=== PATIENT | female | born 1940 | race Caucasian/White ===

== ENCOUNTER 2024-04-16 23:46 | Inpatient (IN) | payer MEDICARE, SELFPAY ==
--- NOTE | ~2024-04-16 | CT_ITS ---
EXAMINATION: CTA chest PE abdomen pel DATE: 04/18/2024 13:12 INDICATION: Nausea and vomiting. Shortness of breath. TECHNIQUE: Computed tomography angiography (CTA) of the chest was performed with 100 mL Omnipaque-350 intravenous contrast timed to evaluate the pulmonary arteries. Coronal maximum intensity projection 3D-reconstructions were created by the technologist. Computed tomography (CT) of the abdomen and pelv is was performed with intravenous contrast. Automated exposure control and iterative reconstruction t echnique were employed. The dose-length product was 827.67 mGy-cm. COMPARISON: None. FINDINGS: CTA chest: There is mild scarring at the lung apices. There is mild emphysema. There are patchy airsp augusto and groundglass opacities in all lobes with a lower lung predominance, consistent with pneumonia. There are small pleural effusions. The heart size is normal. There is a small pericardial effusion. There is no pulmonary embolus. There is wall thickening throughout the esophagus. There is mild thora cic spondylosis. There is mild chronic height loss of multiple thoracic vertebral bodies. CT abdomen and pelvis: The liver is normal. There are gallstones in the gallbladder, which is normal in size. The spleen, pancreas, and adrenal glands are normal. The stomach is distended. There is wall thickening of the duodenum with surrounding fat stranding. There is a perforated duodenal ulcer with fluid and gas in the right abdomen. There is wall thickening in the adjacent ascending colon, consis tent with secondary colitis. There is severe atrophy of right kidney. There is severe right hydroneph rosis. There is a right internal ureteral stent in expected position. There is cortical thinning of l eft kidney. There are cysts in left kidney measuring up to 8 mm. The bladder is decompressed by Barrett catheter. There is a 5.1 cm cyst in right adnexa. There is diverticulosis of the colon without evide nce of diverticulitis. There is a 4.5 cm mass of the proximal ascending colon. There are no pathologi dylon enlarged lymph nodes. There is internal fixation of proximal right femur. There is moderate lum bar spondylosis. IMPRESSION: 1. Perforated duodenal ulcer. 2. Diffuse lung disease, consistent with pneumonia. 3. Small pleural effusions. 4. Mild emphysema. 5. Diffuse wall thickening of the esophagus, likely esophagitis. 6. Severe right kidney atrophy. Severe right hydronephrosis with internal ureteral stent in expected position. 7. Colitis of ascending colon adjacent to the perforated ulcer. The mass of the proximal ascending co kahtie may be primary malignancy or colitis. 8. 5.1 cm cyst of the right ovary, likely benign. Pelvis ultrasound is recommended in one year. 9. No pulmonary embolus. Reviewed, dictated and finalized at location A. IMPRESSION: 1. Perforated duodenal ulcer. 2. Diffuse lung disease, consistent with pneumonia. 3. Small pleural effusions. 4. Mild emphysema. 5. Diffuse wall thickening of the esophagus, likely esophagitis. 6. Severe right kidney atrophy. Severe right hydronephrosis with internal urete ral stent in expected position. 7. Colitis of ascending colon adjacent to the perforated ulcer. The mass of the proximal ascending colon may be primary malignancy or colitis. 8. 5.1 cm cyst of the right ovary, likely benign. Pelvis ultrasound is recommen ded in one year. 9. No pulmonary embolus.
--- NOTE | ~2024-04-16 | XR_ITS ---
EXAMINATION: XR chest 1V portable DATE: 04/18/2024 09:26 INDICATION: Shortness of breath. TECHNIQUE: A single frontal view of the chest was obtained. COMPARISON: None. FINDINGS: There is mild atelectasis at the lung bases. There is mild scarring at the lung apices. No pleural effusion or pneumothorax. The heart size is normal. IMPRESSION: 1. Mild atelectasis at the lung bases and mild scarring at the lung apices. Reviewed, dictated and finalized at location A.
[2024-04-16 22:21] VITALS: BMI 22.1
--- NOTE | 2024-04-16 22:31 | ADMGEN ---
This patient, Mayela Ambrosio, was admitted to 2 Medical Room 258-01. Patient/family oriented to hospital policies and general routines including ID bracelet, bed and alarms, visiting hours, pain management, procedures, bathroom and other care routines, personal items, smoking policy, room service/diet, and visiting hours. Information on how to activate the Rapid Response Team has been discussed. Patient/Family are encouraged to report perceived risks to care and to ask questions if they do not understand what they are told or what they should do.
[2024-04-16 22:38] VITALS: BP 139/75; PULSE 107; RESP 20; TEMP 36.6; O2SAT 98
--- NOTE | 2024-04-16 23:58 | PM.IMHP ---
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 Most of the history has been obtained from medical records patient is unable to give any detail states that she is here because of her son and denies any pain at the present moment. EXAMINATION: XR chest 1V portable DATE: 04/18/2024 09:26 INDICATION: Shortness of breath. TECHNIQUE: A single frontal view of the chest was obtained. COMPARISON: None. FINDINGS: There is mild atelectasis at the lung bases. There is mild scarring at the lung apices. No pleural effusion or pneumothorax. The heart size is normal. IMPRESSION: 1. Mild atelectasis at the lung bases and mild scarring at the lung apices. EXAMINATION: CTA chest PE abdomen pel DATE: 04/18/2024 13:12 INDICATION: Nausea and vomiting. Shortness of breath. TECHNIQUE: Computed tomography angiography (CTA) of the chest was performed with 100 mL Omnipaque-350 intravenous contrast timed to evaluate the pulmonary arteries. Coronal maximum intensity projection 3D-reconstructions were created by the technologist. Computed tomography (CT) of the abdomen and pelvis was performed with intravenous contrast. Automated exposure control and iterative reconstruction technique were employed. The dose-length product was 827.67 mGy-cm. COMPARISON: None. FINDINGS: CTA chest: There is mild scarring at the lung apices. There is mild emphysema. There are patchy airspace and groundglass opacities in all lobes with a lower lung predominance, consistent with pneumonia. There are small pleural effusions. The heart size is normal. There is a small pericardial effusion. There is no pulmonary embolus. There is wall thickening throughout the esophagus. There is mild thoracic spondylosis. There is mild chronic height loss of multiple thoracic vertebral bodies. CT abdomen and pelvis: The liver is normal. There are gallstones in the gallbladder, which is normal in size. The spleen, pancreas, and adrenal glands are normal. The stomach is distended. There is wall thickening of the duodenum with surrounding fat stranding. There is a perforated duodenal ulcer with fluid and gas in the right abdomen. There is wall thickening in the adjacent ascending colon, consistent with secondary colitis. There is severe atrophy of right kidney. There is severe right hydronephrosis. There is a right internal ureteral stent in expected position. There is cortical thinning of left kidney. There are cysts in left kidney measuring up to 8 mm. The bladder is decompressed by Barrett catheter. There is a 5.1 cm cyst in right adnexa. There is diverticulosis of the colon without evidence of diverticulitis. There is a 4.5 cm mass of the proximal ascending colon. There are no pathologically enlarged lymph nodes. There is internal fixation of proximal right femur. There is moderate lumbar spondylosis. IMPRESSION: 1. Perforated duodenal ulcer. 2. Diffuse lung disease, consistent with pneumonia. 3. Small pleural effusions. 4. Mild emphysema. 5. Diffuse wall thickening of the esophagus, likely esophagitis. 6. Severe right kidney atrophy. Severe right hydronephrosis with internal ureteral stent in expected position. 7. Colitis of ascending colon adjacent to the perforated ulcer. The mass of the proximal ascending colon may be primary malignancy or colitis. 8. 5.1 cm cyst of the right ovary, likely benign. Pelvis ultrasound is recommended in one year. 9. No pulmonary embolus. Review of Systems Review of Systems: ROS unobtainable: Yes unobtainable due to mental status PMFSH Past Medical History Medical History (Revie
[2024-04-17] MEDS: NICOTINE (*PBKC) 21 MG PATCH 1 PATCH TRANSDERM (00:18)
[2024-04-17] MEDS: SODIUM CHLORIDE 0.45% 1,000 ML 75 ML IV CONT ×2 (00:19→16:27)
[2024-04-17 00:33] LABS: Lactic Acid Reflex 0.9 mmol/L (0.7-2.0)
[2024-04-17 00:34] LABS: INR 1.3
[2024-04-17] MEDS: MEROPENEM 500 MG/NS 100 ML 500 MG/100 ML BAG 200 MG IVPB (00:54)
[2024-04-17 05:29] LABS: Basophils Absolute Auto 0.1 K/mm3 (0.0-0.1); Basophils Percent Auto 0.3 % (0.2-1.2); Hematocrit 30.9 % (37.0-47.0); Hemoglobin 10.1 g/dL (12.0-15.0); Immature Granulocyte Absolute 0.33 K/mm3 (0.00-0.031); Immature Granulocyte Percent A 1.4 % (0-0.5); Lymphocytes Absolute Auto 0.64 K/mm3 (0.9-3.2); Lymphocytes Percent Auto 2.8 % (18.3-44.2); Mean Corpuscular HGB Conc 32.7 g/dl (32-36); Mean Corpuscular Hemoglobin 27.8 pg (26-34); Mean Corpuscular Volume 85.1 fl (80-100); Mean Platelet Volume 9.2 fl (7.4-10.4); Monocytes Absolute Auto 0.6 K/mm3 (0.1-0.6); Monocytes Percent Auto 2.7 % (2.6-8.5); Neutrophils Absolute Auto 21.5 K/mm3 (1.3-6.7); Neutrophils Percent Auto 92.8 % (45.5-73.1); Platelet Count Result 457 k/mm3 (150-375); Red Blood Count 3.63 M/mm3 (4.2-5.4); Red Cell Distribution Width 14.8 % (11.5-14.5); White Blood Count 23.1 K/mm3 (4.5-10.0)
[2024-04-17 05:45] LABS: Anion Gap 12 mmol/L (4-12); Blood Urea Nitrogen 28 mg/dL (7-17); Calcium 8.1 mg/dL (8.4-10.2); Carbon Dioxide 22 mmol/L (22-30); Chloride 103 mmol/L (98-107); Estimated CRCL calculation 33 ml/min; Estimated Glomerular Filt Rate 43; Glucose 134 mg/dL (65-110); Potassium 3.9 mmol/L (3.4-5.0); Sodium 137 mmol/L (137-145)
[2024-04-17 05:51] LABS: Anisocytosis 1+; Hypochromasia 1+; Platelet Estimate Adequate (Adequate)
[2024-04-17 05:52] LABS: Burr Cells 1+; Schistocytes None Seen
[2024-04-17 06:00] VITALS: BP 137/91; PULSE 113; RESP 20; TEMP 36.3; O2SAT 97
[2024-04-17] MEDS: ONDANSETRON INJ 4 MG/2 ML VIAL IV PUSH ×2 (06:44→17:15)
--- NOTE | 2024-04-17 07:15 | PM.IMPN ---
Progress Note: A&P Assessment and Plan (1) Sepsis: Code(s): A41.9 - Sepsis, unspecified organism Status: Acute Assessment and Plan: Meets SIRS criteria: tachycardia, leukocytosis, known source - lactic acid: 0.9, was 1.5 at outside facility per chart review - Received sepsis bolus at outside facility per chart review - suspected source: right pyelonephritis - antibiotics: received cefepime at outside facility, started on meropenem here on 04/17 and transitioned to linezolid and rocephin on 04/17 - blood cultures drawn at outside facility: preliminary - gram + cocci - blood cultures drawn on 04/17: pending - UA ordered - Urine culture per UA - CXR outside facility: No acute cardiopulmonary process - CT abdomen/pelvis outside facility: right ureteral stent with marked right hydronephrosis and distention of the renal pelvis. Tiny amount of gas within the collecting system is nonspecific but may reflect superimposed infection. (2) Urinary tract infection: Code(s): N39.0 - Urinary tract infection, site not specified Status: Acute Assessment and Plan: - UA abnormal at outside facility - UC pending - Remains on Rocephin and linezolid (3) Pyelonephritis: Code(s): N12 - Tubulo-interstitial nephritis, not specified as acute or chronic Status: Acute Assessment and Plan: - CT abdomen/pelvis outside facility: right ureteral stent with marked right hydronephrosis and distention of the renal pelvis. Tiny amount of gas within the collecting system is nonspecific but may reflect superimposed infection. - Antibiotics: linezolid and rocephin (4) Hydronephrosis: Code(s): N13.30 - Unspecified hydronephrosis Status: Acute Assessment and Plan: Patient has a right ureteral stent, last exchanged 02/2024. - CT abdomen/pelvis outside facility: right ureteral stent with marked right hydronephrosis and distention of the renal pelvis. Tiny amount of gas within the collecting system is nonspecific but may reflect superimposed infection. - Urology consulted Chronic right hydronephrosis is unchanged. No acute intervention required at this time. Continue to follow up with Dr. Napoles as scheduled. (5) Hypertension: Code(s): I10 - Essential (primary) hypertension Status: Acute Assessment and Plan: Chronic, continue home medications. - Amlodipine 10 mg daily - Monitor Time Spent With Patient Time with patient: 25 - 35 minutes Subjective Date/time seen: 04/17/24 07:15 Interval history: 83 year old female with past medical history of HTN, HLD, and frequent UTIs with right kidney stent (exchanged 02/2024) presented to [facility] for fatigue and anorexia. She was noted to be septic with a CT abdomen/pelvis concerning for hydro/pyelonephrosis. She was started on antibiotics and transferred to this hospital as a direct admit for urology consult and further antibiotic therapy. Per chart review Urology at [facility] was planning for a simple nephrectomy, however family did not proceed with this management and has continued to have stent exchanged. Patient is pleasant lying in bed. She is AOx4 during assessment. She has no complaints at this time, denying chest pain, shortness of breath, nausea/vomiting, changes in urination (dysuria, hematuria, burning sensation) or bowels. She was evaluated by urology today who state there is no need for acute intervention at this time. Will continue antibiotic therapy for sepsis. RN received a call from [facility] and was told that her blood cultures were growing gram + cocci. Discussed patient with [facility] pharmacy and she was transitioned to linezolid and Rocephin. Review of Systems Review of Systems: All systems reviewed & are unremarkable except as noted in HPI and below Exam Narrative: AF HR 113 RR 20 SpO2 97 BP 137/91 General: female in no acute respiratory distress who is nontoxic appearing, lying semi recumbent i
[2024-04-17] MEDS: amLODIPine BESYLATE 10 MG TABLET PO (08:40)
--- NOTE | 2024-04-17 10:26 | WPDURCON ---
Assessment and Plan Assessment and plan (1) Sepsis: Code(s): A41.9 - Sepsis, unspecified organism Status: Acute Assessment and Plan: Septic on presentation with leukocytosis and tachycardia. Remains afebrile. Continue empiric antibiotics, IV fluids, and supportive care managed per primary team. Blood cultures pending. (2) Urinary tract infection: Code(s): N39.0 - Urinary tract infection, site not specified Status: Acute Assessment and Plan: UA abnormal and patient symptomatic. Urine culture at [facility] facility is pending. Continue empiric antibiotics while awaiting final culture results (3) Hydronephrosis: Code(s): N13.30 - Unspecified hydronephrosis Status: Acute Assessment and Plan: Chronic right hydronephrosis is unchanged. No need for acute intervention. Last stent exchange 03/03/24. Continue to follow up with Dr. Napoles as scheduled. Urology Consult Note HPI Date Seen: 04/17/24 Requesting Physician: Linh Martinez PA-C Primary Care Provider: Freddy Hodgson M.D. Consult Narrative Narrative: Mayela Ambrosio is a 83 year old female with chronic poorly functioning right kidney and chronic right side obstruction established with Dr. Napoles. Initial plan for management was for right nephrectomy but she did not follow up for this and since has been managed with routine right ureteral stent exchanges every 3-4 months. Last stent exchange was 03/03/24. She presented to [place] [facility] on 04/16/24 with increased weakness, lethargy, and poor appetite. On arrival, was found to have elevated WBC of 26.7, creatinine 1.63, and UA with leukocytes and blood. A CT of the abdomen/pelvis was completed which showed right stent in expected position with interval improvement of chronic marked right hydronephrosis, an 8 mm right renal stone, and small amount of gas in collecting system, consistent with infection. She was transferred to this facility for urologic evaluation. Today her WBC is 23.1 and creatinine is 1.2. Blood cultures are pending. Urine culture collected at outside facility is pending. The patient is a relatively poor historian and not able to provide much relevant history. She states that prior to admission, she was voiding without difficulty and denies dysuria or hematuria. A logan catheter was placed at some point since presentation and is draining clear yellow urine. She denies flank pain, back pain, abdominal pain, suprapubic pain, nausea, vomiting, fever, or chills. Review of Systems Review of Systems: All systems reviewed & are unremarkable except as noted in HPI and below [facility] Family History Family History (Updated 04/16/24 @ 22:33 by Poornima Valdez RN) Father Alcohol abuse Social History Social History Smoking packs per day: 1 Smoking cigarettes per day: 20.0 Smoking status: Current some day smoker Alcohol intake: never Substance use: never Do You Feel Safe in your Home?: No Lack of Transportation: No Lack of Food: Never True Current Housing: I Have Housing Concerned About Future Housing: No Difficulty Paying Gas/Electric Bills: No Difficulty Paying for Meds: No Currently Unemployed: No Education: Grade School Difficulty w/ Childcare or Family Care: No Spiritual care concerns: No Meds Home Medications and Allergies Home Medications Medication Instructions Recorded Confirmed Type amlodipine 10 mg tablet 10 mg PO DAILY 04/16/24 04/16/24 History atorvastatin 40 mg tablet 40 mg PO DAILY 04/16/24 04/16/24 History Allergies Allergy/AdvReac Type Severity Reaction Status Date / Time No Known Allergies Allergy Verified 04/16/24 22:42 Vital Signs Vital Signs - 24 hr 04/16/24 22:38 04/16/24 22:37 04/17/24 06:00 Temperature 97.8 F 97.3 F L Pulse Rate 107 H 113 H Respiratory Rate 20 20 Blood Pressure 139/75 137/91 H Pulse Oximetry 98 97 Oxygen Delivery Room Air Exam Narrativ
[2024-04-17] MEDS: cefTRIAXone 2 GM/NS 100 ML 2 GM/100 ML BAG IVPB (12:42)
[2024-04-17] MEDS: LINEZOLID 600 MG TABLET PO ×2 (12:42→20:33)
[2024-04-17 14:00] VITALS: BP 127/54; PULSE 100; RESP 18; TEMP 36.9; O2SAT 96
[2024-04-17 17:56] LABS: Add Urine Microscopic? YES; Appearance Urine Cloudy (Clear); Bacteria Urine None Seen /hpf; Bilirubin Urine Negative (Negative); Blood Urine Trace (Negative); Color Urine Yellow (Yellow); Glucose Urine UA Negative (Negative); Ketones Urine Negative (Negative); Leukocyte Esterase Ur 2+ LEU/UL (Negative); Nitrate Urine Negative (Negative); Protein Urine 2+ mg/dL (Negative); RBC Urine 0-2 /hpf (0-2); Specific Grav Ur 1.016 (1.001-1.035); Squamous Epithelial Cell Urine Occasional /hpf (Few); Urobilinogen Urine 0.2 mg/dL (<2.0); WBC Urine 51-100 /hpf (0-3); pH Urine 5.5 (5.0-9.0)
[2024-04-17 21:03] VITALS: BP 132/57; PULSE 118; RESP 18; TEMP 36.5; O2SAT 90
[2024-04-18] VITALS (12 sets, daily range): BP systolic 109–133; BP diastolic 63–99; PULSE 98–129; RESP 18–32; TEMP 35.4–36.5; O2SAT 92–99
[2024-04-18] MEDS: ONDANSETRON INJ 4 MG/2 ML VIAL IV PUSH (01:05)
[2024-04-18] MEDS: SODIUM CHLORIDE 0.45% 1,000 ML 75 ML IV CONT (06:06)
--- NOTE | 2024-04-18 07:03 | PM.IMPN ---
Progress Note: A&P Assessment and Plan (1) Acute respiratory failure with hypoxia: Code(s): J96.01 - Acute respiratory failure with hypoxia Status: Acute Assessment and Plan: Patient developed acute respiratory failure with hypoxia requiring 6L NC and became increasingly tachycardic likely due to worsening sepsis 2/2 perforated duodenal ulcer. Transferred to IMU. - 4 L NC supplementation (baseline RA) - Wean oxygen supplementation as tolerated for spo2 > 90 (2) Sepsis: Code(s): A41.9 - Sepsis, unspecified organism Status: Acute Assessment and Plan: Meets SIRS criteria: tachycardia, leukocytosis, known source - lactic acid: 0.9 on admission, was 1.5 at outside facility per chart review - Received sepsis bolus at outside facility per chart review - suspected source: right pyelonephritis - antibiotics: received cefepime at outside facility, started on meropenem here on 04/17 and transitioned to linezolid and rocephin on 04/17 - blood cultures drawn at outside facility: preliminary - gram + cocci - blood cultures drawn on 04/17: pending - UA ordered - Urine culture per UA - CXR outside facility: No acute cardiopulmonary process - CT abdomen/pelvis outside facility: right ureteral stent with marked right hydronephrosis and distention of the renal pelvis. Tiny amount of gas within the collecting system is nonspecific but may reflect superimposed infection. 04/18: Patient developed acute respiratory failure with hypoxia requiring 6L NC and became increasingly tachycardic likely due to worsening sepsis 2/2 perforated duodenal ulcer. Transferred to IMU. - Antibiotcs: continue linezolid, start zosyn, and DC rocephin - WBC 23.1 >>> 29.8 on am labs - lactic acid 1.6 - AB.517, pCO2 32.3, pO2 63.9, HCO3 25.6 - Chest XR: mild atelectasis at the lung bases and mild scarring at the lung apices. - Chest/Abdomen/Pelvis CTA: 1. Perforated duodenal ulcer. 2. Diffuse lung disease, consistent with pneumonia. 3. Small pleural effusions. 4. Mild emphysema. 5. Diffuse wall thickening of the esophagus, likely esophagitis. 6. Severe right kidney atrophy. Severe right hydronephrosis with internal ureteral stent in expected position. 7. Colitis of ascending colon adjacent to the perforated ulcer. The mass of the proximal ascending colon may be primary malignancy or colitis. 8. 5.1 cm cyst of the right ovary, likely benign. Pelvis ultrasound is recommended in one year. 9. No pulmonary embolus. - Surgery consulted for perforated duodenal ulcer, patient being taken to emergency surgery (3) Perforated duodenal ulcer: Code(s): K26.5 - Chronic or unspecified duodenal ulcer with perforation Status: Acute Assessment and Plan: - CTA chest/abdomen/pelvis: Perforated duodenal ulcer. - Monitor vital signs, I&Os, neuro status and patient is a fall risk - Follow WBC, serum electrolytes, temperature curves and cultures - Surgery consulted, patient being taken to emergency surgery (4) Pneumonia: Code(s): J18.9 - Pneumonia, unspecified organism Status: Acute Assessment and Plan: CXR: Mild atelectasis at the lung bases and mild scarring at the lung apices. CTA chest/abdomen/pelvis: patchy airspace and groundglass opacities in all lobes with a lower lung predominance, consistent with pneumonia. There are small pleural effusions. - Antibiotics: linezolid and zosyn - 4 L NC requirement (baseline room air), wean as tolerated - Monitor vital signs, I&Os, neuro status and patient is a fall risk - Follow WBC, serum electrolytes, temperature curves and cultures (5) Urinary tract infection: Code(s): N39.0 - Urinary tract infection, site not specified Status: Acute Assessment and Plan: - UA abnormal at outside facility - UC pending at outside facility - Remains on Rocephin and linezolid (6) Hydronephrosis: Code(s): N13.30 - Unspecified hydronephrosis Status: Acute
--- NOTE | 2024-04-18 07:33 | WPDUROPN2 ---
Progress Note: A&P Assessment and Plan (1) Hydronephrosis: Code(s): N13.30 - Unspecified hydronephrosis Status: Acute (2) Pyelonephritis: Code(s): N12 - Tubulo-interstitial nephritis, not specified as acute or chronic Status: Acute (3) PAPO (acute kidney injury): Code(s): N17.9 - Acute kidney failure, unspecified Status: Acute Assessment and Plan: Await morning labs. No plans for right ureteral stent exchange at this time. Continue broad spectrum abx. pending culture. Subjective Subjective Date/Time Seen: 04/18/24 07:33 Interval history: Comfortable, no acute events Review of Systems Review of Systems: All systems reviewed & are unremarkable except as noted in HPI and below Objective Data Vital Signs Vital Signs: Vital Signs - 24 hr 04/17/24 08:33 04/17/24 14:00 04/17/24 21:03 Temperature 98.4 F 97.7 F Pulse Rate 100 118 H Respiratory Rate 18 18 Blood Pressure 127/54 L 132/57 L Pulse Oximetry 96 90 Oxygen Delivery Room Air 04/18/24 05:02 Temperature 97.7 F Pulse Rate 100 Respiratory Rate 18 Blood Pressure 133/88 Pulse Oximetry 92 Oxygen Delivery Intake/Output Intake/Output: Intake & Output 04/15/24 04/16/24 04/17/24 04/18/24 23:59 23:59 23:59 23:59 Intake Total 1720.0 1000 Output Total 650 200 Balance 1070.0 800 Meds/Results Medications: Active Medications Generic Name Dose Route Start Last Admin Trade Name Freq PRN Reason Stop Dose Admin Acetaminophen 1,000 mg 04/17/24 00:31 Acetaminophen 500 Mg Tablet PO Q6H PRN Mild Pain (1-3) or Fever Al Hydrox/Mg Hydrox/Simethicone 30 ml 04/16/24 23:54 Mag Hydrox/Al Hydrox/Simeth 30 Ml Udc PO QID PRN Dyspepsia Amlodipine Besylate 10 mg 04/17/24 09:00 04/17/24 08:40 Amlodipine Besylate 10 Mg Tablet PO 10 mg DAILY HILARIO Administration Enoxaparin Sodium 40 mg 04/18/24 09:00 Enoxaparin 40 Mg/0.4 Ml Syringe SUB-Q DAILY HILARIO Sodium Chloride 1,000 mls @ 75 mls/hr 04/16/24 23:55 04/18/24 06:06 Sodium Chloride 0.45% IV CONT 75 mls/hr .[id number] HILARIO Administration Ceftriaxone Sodium 2 gm in 100 mls @ 200 mls/hr 04/17/24 12:15 04/17/24 13:12 Rocephin 2 Gm/Ns 100 Ml IVPB Infused DAILY HILARIO Infusion Linezolid 600 mg 04/17/24 12:15 04/17/24 20:33 Linezolid 600 Mg Tablet PO 600 mg Q12HR HILARIO Administration Magnesium Hydroxide 30 ml 04/16/24 23:54 Magnesium Hydroxide Susp 30 Ml Udc PO DAILY PRN Constipation Morphine Sulfate 2 mg 04/16/24 23:54 Morphine Sulfate (*Crx) 2 Mg/Ml Inj IV PUSH Q4H PRN Pain Rated 7-10 Nicotine 1 patch 04/16/24 22:51 04/17/24 08:40 Nicotine (*Pbkc) 21 Mg Patch TRANSDERM Not Given DAILY [facility] Ondansetron HCl 4 mg 04/16/24 23:54 04/18/24 01:05 Ondansetron Inj 4 Mg/2 Ml Vial IV PUSH 4 mg Q6H PRN Administration Nausea And Vomiting Labs Labs: Laboratory Results - last 24 hr 04/17/24 17:38 Urine Color Yellow Urine Appearance Cloudy H Urine pH 5.5 Ur Specific [place] 1.016 Urine Protein 2+ H Urine Glucose (UA) Negative Urine Ketones Negative Ur Blood (Man) Trace Urine Nitrate Negative Urine Bilirubin Negative Urine Urobilinogen 0.2 Ur Leukocyte Esterase 2+ H Urine RBC 0-2 Urine WBC 51-100 Ur Squamous Epith Cells Occasional Urine Bacteria None seen Urine Casts 3-5
[2024-04-18 08:44] LABS: Basophils Absolute Auto 0.1 K/mm3 (0.0-0.1); Basophils Percent Auto 0.3 % (0.2-1.2); Hematocrit 33.3 % (37.0-47.0); Hemoglobin 10.7 g/dL (12.0-15.0); Immature Granulocyte Absolute 0.28 K/mm3 (0.00-0.031); Immature Granulocyte Percent A 0.9 % (0-0.5); Lymphocytes Absolute Auto 0.71 K/mm3 (0.9-3.2); Lymphocytes Percent Auto 2.4 % (18.3-44.2); Mean Corpuscular HGB Conc 32.1 g/dl (32-36); Mean Corpuscular Hemoglobin 26.6 pg (26-34); Mean Corpuscular Volume 82.8 fl (80-100); Mean Platelet Volume 9.4 fl (7.4-10.4); Monocytes Absolute Auto 0.8 K/mm3 (0.1-0.6); Monocytes Percent Auto 2.7 % (2.6-8.5); Neutrophils Absolute Auto 27.9 K/mm3 (1.3-6.7); Neutrophils Percent Auto 93.7 % (45.5-73.1); Platelet Count Result 448 k/mm3 (150-375); Red Blood Count 4.02 M/mm3 (4.2-5.4); Red Cell Distribution Width 14.9 % (11.5-14.5); White Blood Count 29.8 K/mm3 (4.5-10.0)
[2024-04-18] MEDS: cefTRIAXone 2 GM/NS 100 ML 2 GM/100 ML BAG IVPB (08:57)
[2024-04-18] MEDS: ENOXAPARIN 40 MG/0.4 ML SYRINGE SUB-Q (08:57)
[2024-04-18] MEDS: amLODIPine BESYLATE 10 MG TABLET PO (08:57)
[2024-04-18] MEDS: NICOTINE (*PBKC) 21 MG PATCH 1 PATCH TRANSDERM (08:57)
[2024-04-18] MEDS: LINEZOLID 600 MG TABLET PO (08:57)
[2024-04-18 08:58] LABS: Alanine Aminotransferase 19 U/L (6-35); Albumin Level 2.9 g/dL (3.5-5.1); Alkaline Phosphatase 152 U/L (38-126); Anion Gap 14 mmol/L (4-12); Aspartate Amino Transferase 42 U/L (14-36); Bilirubin,Total 0.6 mg/dL (0.2-1.3); Blood Urea Nitrogen 31 mg/dL (7-17); Carbon Dioxide 23 mmol/L (22-30); Chloride 99 mmol/L (98-107); Estimated CRCL calculation 31 ml/min; Estimated Glomerular Filt Rate 39; Glucose 134 mg/dL (65-110); Potassium 3.5 mmol/L (3.4-5.0); Sodium 136 mmol/L (137-145)
--- NOTE | 2024-04-18 09:07 | ECG_ITS ---
Test Date: 2024-04-18 09:15:44 Measurements Intervals [place] Rate: 127 P: 60 RI: 167 QRS: 17 QRSD: 84 T: 73 QT: 296 QTc: 431 Interpretive Statements SINUS TACHYCARDIA BASELINE WANDER IN LEAD(S) No previous ECG available for comparison Electronically Signed On 04-19-2024 13:32:06 CDT by Salbador Pitt M.D.
[2024-04-18] MEDS: FUROSEMIDE INJ 40 MG/4 ML VIAL IV PUSH (09:14)
[2024-04-18 09:40] LABS: Anisocytosis 1+; Burr Cells 2+; Platelet Estimate Increased (Adequate); Schistocytes None Seen
[2024-04-18 10:07] LABS: Lactic Acid Reflex 1.6 mmol/L (0.7-2.0)
[2024-04-18 10:16] LABS: Troponin I 0.071 ng/mL (0.000-0.034)
--- NOTE | 2024-04-18 10:17 | ECG_ITS ---
Test Date: 2024-04-18 10:47:18 Measurements Intervals [place] Rate: 117 P: 59 CO: 160 QRS: 50 QRSD: 94 T: 72 QT: 319 QTc: 445 Interpretive Statements SINUS TACHYCARDIA LOW QRS VOLTAGE IN PRECORDIAL LEADS [QRS DEFLECTION < 1.0 mV IN CHEST LEADS] ABNORMAL RHYTHM ECG Compared to ECG 04/18/2024 09:15:44 Low QRS voltage now present Electronically Signed On 04-19-2024 13:33:37 CDT by Salbador Pitt M.D.
[2024-04-18] MEDS: LEVALBUTEROL NEB 1.25 MG/3 ML INHALATION (11:00)
[2024-04-18 12:17] LABS: Alveolar/Arterial O2 Gradient 155.3 mmHg; Fractional Inspired Oxygen 36 %; HCO3 ABG 25.6 mEq/l (22.0-26.0); Oxygen Content ABG 13.6 %vol (16.0-22.0); Oxygen Saturation ABG 94.5 % (95.0-100.0); Oxyhemoglobin 91.6 % THb (90.0-100.0); PCO2 ABG 32.3 mmHg (35.0-45.0); PO2 ABG 63.9 mmHg (80.0-100.0); PO2 FiO2 Ratio Arterial Blood 1.78 %; Total Hemoglobin 10.5 g/dL (12.0-18.0)
[2024-04-18 12:18] LABS: Device NASAL CANNULA; Modified Allen's Test Pass; Site Drawn LEFT RADIAL; pH ABG 7.517 (7.350-7.450)
--- NOTE | 2024-04-18 13:51 | PC.NURSE ---
This patient, Mayela Ambrosio, was received from [facility] on 04/18/24 at 1330. Patient/family oriented to unit policies and routines.
--- NOTE | 2024-04-18 15:34 | PC.NURSE ---
Patient sent down to OR pre op for surgery on perforated ulcer.
--- NOTE | 2024-04-18 15:49 | WPDANESEPPF ---
Anes - Initial Pre Proc Eval Procedure: Operation Date: 04/18/24 16:15 Proposed Procedures p Exploratory Laparotomy, Pos Bowel Resec - Lisbeth yHlton MD Date/Time: 04/18/24 15:49 Surgeon: Linh Martinez PA-C Pre Op Diagnosis: PAPO/Urolithiasis Patient Data Age: 83 Gender: F Height: 1.73 m Weight: 66.1 kg Last Vital Signs Temp 36.3 C L 04/18/24 13:44 Pulse 114 H 04/18/24 13:44 Resp 20 04/18/24 13:44 BP 109/63 04/18/24 13:44 Pulse Ox 95 04/18/24 13:44 O2 Del Method Nasal Cannula 04/18/24 13:30 O2 Flow Rate 4 04/18/24 13:30 FiO2 36 04/18/24 12:10 Allergies Allergy/AdvReac Type Severity Reaction Status Date / Time No Known Allergies Allergy Verified 04/16/24 22:42 Home Medications Medication Instructions Recorded Confirmed Type amlodipine 10 mg tablet 10 mg PO DAILY 04/16/24 04/16/24 History atorvastatin 40 mg tablet 40 mg PO DAILY 04/16/24 04/16/24 History Laboratory Tests 04/17/24 04/18/24 04/18/24 17:38 08:26 09:43 WBC 29.8 H K/mm3 (4.5-10.0) RBC 4.02 L M/mm3 (4.2-5.4) Hgb 10.7 L g/dL (12.0-15.0) Hct 33.3 L % (37.0-47.0) MCV 82.8 fl (80-100) MCH 26.6 pg (26-34) MCHC 32.1 g/dl (32-36) RDW 14.9 H % (11.5-14.5) Plt Count 448 H k/mm3 (150-375) MPV 9.4 fl (7.4-10.4) Immature Gran % (Auto) 0.9 H % (0-0.5) Neut % (Auto) 93.7 H % (45.5-73.1) Lymph % (Auto) 2.4 L % (18.3-44.2) [place] % (Auto) 2.7 % (2.6-8.5) Eos % (Auto) 0.0 % (0-4.4) Baso % (Auto) 0.3 % (0.2-1.2) Lymph # (Auto) 0.71 L K/mm3 (0.9-3.2) [place] # (Auto) 0.8 H K/mm3 (0.1-0.6) Eos # (Auto) 0.0 K/mm3 (0-0.3) Baso # (Auto) 0.1 K/mm3 (0.0-0.1) Abs Immat Gran (auto) 0.28 H K/mm3 (0.00-0.031) Absolute Neuts (auto) 27.9 H K/mm3 (1.3-6.7) Absolute Nucleated RBC 0.000 K/mm3 (0.0-0.012) Nucleated RBC % 0.0 % (0.0-0.2) Platelet Estimate Increased (Adequate) Anisocytosis 1+ [place] Cells 2+ Schistocytes None seen Puncture Site ABG pH ABG pCO2 ABG pO2 ABG PO2/FiO2 Ratio ABG HCO3 ABG O2 Saturation ABG O2 Content ABG Base Excess A-a Gradient Oxyhemoglobin Total Hemoglobin O2 Delivery Device O2 Liters/Min FiO2 Sodium 136 L mmol/L (137-145) Potassium 3.5 mmol/L (3.4-5.0) Chloride 99 mmol/L (98-107) Carbon Dioxide 23 mmol/L (22-30) Anion Gap 14 H mmol/L (4-12) BUN 31 H mg/dL (7-17) Creatinine 1.30 H mg/dL (0.7-1.0) Estim Creat Clear Calc 31 ml/min Estimated GFR 39 L (59 - ) Glucose 134 H mg/dL (65-110) Lactic Acid 1.6 mmol/L (0.7-2.0) Calcium 8.0 L mg/dL (8.4-10.2) Total Bilirubin 0.6 mg/dL (0.2-1.3) AST 42 H U/L (14-36) ALT 19 U/L (6-35) Alkaline Phosphatase 152 H U/L (38-126) Troponin I 0.071 H* ng/mL (0.000-0.034) Total Protein 7.0 g/dL (6.3-8.2) Albumin 2.9 L g/dL (3.5-5.1) Urine Color Yellow (Yellow) Urine Appearance Cloudy H (Clear) Urine pH 5.5 (5.0-9.0) Ur Specific [place] 1.016 (1.001-1.035) Urine Protein 2+ H mg/dL (Negative) Urine Glucose (UA) Negative mg/dL (Negative) Urine Ketones Negative mg/dL (Negative) Ur Blood (Man) Trace (Negative) Urine Nitrate Negative (Negative) Urine Bilirubin Negative (Negative) Urine Urobilinogen 0.2 mg/dL (<2.0)
--- NOTE | 2024-04-18 16:28 | PM.CNGS ---
Assessment and Plan Assessment and plan (1) Perforated duodenal ulcer: Code(s): K26.5 - Chronic or unspecified duodenal ulcer with perforation Status: Acute Assessment and Plan: Plan for emergent operative intervention, unfortunately patient in the preoperative area, patient made comfort care by family prior to expiration (2) Sepsis: Code(s): A41.9 - Sepsis, unspecified organism Status: Acute Assessment and Plan: see above History of Present Illness Consult details Consult date: 04/18/24 Reason for consult: abdominal pain Requesting physician: Linh Martinez PA-C Narrative: The patient is an 83-year-old female with multiple medical issues that presented from an outside facility with sepsis. The patient with noted right pyelonephritis, hydronephrosis and source was noted to be likely from this. The patient was being followed by Urology with plans for further workup and imaging early next week. Today, the patient deteriorated with increasing oxygen requirements and tachycardia. The patient with worsening mental status throughout the day as well. Repeat CT scan today showed perforated viscus likely from perforated duodenal ulcer. General surgery was immediately consulted and plans were made for emergent surgical intervention. Discussion was had with the family and at that time decision was made for operative intervention. Review of Systems Review of Systems: ROS unobtainable: Yes unobtainable due to medical condition and unobtainable due to mental status PMFSH Past Medical History Medical History PAPO (acute kidney injury) Hypertension Family History Family History Father Alcohol abuse Social History Social History Smoking packs per day: 1 Smoking cigarettes per day: 20.0 Smoking status: Current some day smoker Alcohol intake: never Substance use: never Do You Feel Safe in your Home?: No Lack of Transportation: No Lack of Food: Never True Current Housing: I Have Housing Concerned About Future Housing: No Difficulty Paying Gas/Electric Bills: No Difficulty Paying for Meds: No Currently Unemployed: No Education: Grade School Difficulty w/ Childcare or Family Care: No Spiritual care concerns: No Meds Home Medications and Allergies Home Medications Medication Instructions Recorded Confirmed Type amlodipine 10 mg tablet 10 mg PO DAILY 04/16/24 04/16/24 History atorvastatin 40 mg tablet 40 mg PO DAILY 04/16/24 04/16/24 History Allergies Allergy/AdvReac Type Severity Reaction Status Date / Time No Known Allergies Allergy Verified 04/16/24 22:42 Vital Signs Vital Signs - 24 hr 04/17/24 21:03 04/18/24 05:02 04/18/24 11:00 Temperature 36.5 C 36.5 C Pulse Rate 118 H 100 117 H Respiratory Rate 18 18 24 H Blood Pressure 132/57 L 133/88 Pulse Oximetry 90 92 Oxygen Delivery Oxygen Flow Rate Fraction of Inspired Oxygen 04/18/24 11:12 04/18/24 11:00 04/18/24 12:10 Temperature Pulse Rate 120 H Respiratory Rate 24 H Blood Pressure Pulse Oximetry 97 95 Oxygen Delivery Nasal Cannula Nasal Cannula Oxygen Flow Rate 6 4 Fraction of Inspired Oxygen 44 36 04/18/24 08:55 04/18/24 12:00 04/18/24 13:44 Temperature 36.3 C L Pulse Rate 115 H 114 H Respiratory Rate 20 Blood Pressure 109/63 Pulse Oximetry 95 95 Oxygen Delivery Nasal Cannula Oxygen Flow Rate 6 Fraction of Inspired Oxygen 04/18/24 13:30 04/18/24 16:07 Temperature 35.4 C L Pulse Rate 129 H Respiratory Rate 32 H Blood Pressure 124/99 H Pulse Oximetry 95 99 Oxygen Delivery Nasal Cannula Oxygen Flow Rate 4 Fraction of Inspired Oxygen Exam Const: General: acute distress, in distress severe, ill appearing and uncomfortable HENMT: H
--- NOTE | 2024-04-18 16:35 | P.DN_ITS ---
Discharge Summary Date and Time Date of : 04/18/24 Time of : 16:09 Provider Pronounced By: Provider Name of Provider That Pronounced: Warner Probable Cause of Probable Cause of : sepsis, respiratory failure Summary Hospital Course: The patient is an 83-year-old female that presented from outside facility with sepsis. The patient with known right kidney issues and likely source from pyelonephritis, hydronephrosis. Earlier today, the patient was noted to have increasing oxygen requirements and tachycardia. Per the family, the patient also with mental status decline throughout the day. The patient was noted to have increasing leukocytosis. A stat CT scan revealed perforated viscus likely secondary to perforated duodenal ulcer. General surgery was immediately consulted and plans for emergent surgery was done. The patient was brought down to the preoperative area and being evaluated by Anesthesia. The patient continued to have worsening mental status and was barely able to respond to any verbal cues. The patient was noted to have worsening oxygenation with saturations in the 80s. She continued to be tachycardic. The patient then had a large emesis and proceeded to go into pulseless electrical activity. The patient's family was witnessed to this. Upon discussion with the family, they did not want to proceed with any further intervention, including chest compressions, defibrillation, etc.. Given this, the patient and went into asystole at 4:09 p.m. Additional Data Confirmation of as documented by pronouncing clinician: Palpable Pulses, Response to Stimuli, Heart Tones and Breath Sounds Family: at bedside Additional persons at bedside: other (anesthesia, operative team) Was code activated?: Yes Provider Requests Autopsy: No Family Requests Autopsy: No Health Claims Examiner Notified: Yes
--- NOTE | 2024-04-18 16:35 | SUR.OPER ---
Prior to Patient transport to the OR, the Patient in the Recovery area @ 16:09, confirmed by Dr. Balbir Barba, Anesthesiologist
--- NOTE | 2024-04-18 20:05 | PC.NURSE ---
[facility] to [facility] and transport to [facility], per Sav at [facility]. Sandra picked patient up at ~2000. I confirmed [facility] plan with family choice of home, [facility] . Spoke with Isidoro at [facility] and he said he was aware that [facility] would take the patient prior to final disposition to them.
== END 2024-04-18 16:09 | disposition expired | DRG 871 ==
LOC: ANH2MED 04-17 16:19 → ANHIMU 04-18 13:33
PROVIDERS: Student in an Organized Health Care Education/Training Program; Admitting Provider Internal Medicine; PCP Family Medicine; Visit Provider Surgery
PROC: (CPT 49000; principal; 2024-04-18 16:15)
DX: A41.9 Sepsis, unspecified organism (principal); J18.9 Pneumonia, unspecified organism; J96.01 Acute respiratory failure with hypoxia; K26.5 Chronic or unspecified duodenal ulcer with perforation; N17.9 Acute kidney failure, unspecified; N13.6 Pyonephrosis; I10 Essential (primary) hypertension; E78.5 Hyperlipidemia, unspecified; F17.210 Nicotine dependence, cigarettes, uncomplicated
CPT/HCPCS: 36415; 36600; 71045; 71275; 74177; 80048; 80053; 81001; 82805; 83605; 84484; 85025; 85610; 87040; 93005; 94640; 96361; 96365; 96367; 96372; 96375; 96376; A9270; G0378; J0696; J1650; J1940; J2185; J2405; J7030; Q9967